=== PATIENT | female | born 1960 | race Caucasian/White ===

== ENCOUNTER 2019-04-30 09:07 | Inpatient (IN) ==
[2019-04-30] MEDS ORDERED: PROMETHAZINE HCL 12.5 MG in SODIUM CHLORIDE 0.9% 50 ML IV PRN (10:01)
[2019-04-30] MEDS ORDERED: LORazepam 1 MG/2 ML VIAL IV PRN (10:01)
[2019-04-30] MEDS ORDERED: ACETAMINOPHEN 325 MG TAB PO PRN (10:01)
[2019-04-30] MEDS ORDERED: ONDANSETRON INJ 2 MG/ML 2 ML VIAL IV PRN (10:01)
[2019-04-30] MEDS ORDERED: LORazepam 1 MG TAB PO PRN (10:01)
[2019-04-30 12:19] LABS: Basophils # (auto) 0.04 K/uL (0-0.2); Basophils % (auto) 0.5 %; Eosinophils # (auto) 0.16 K/uL (0-0.5); Eosinophils % (auto) 1.9 %; Hematocrit (blood only) 37.4 % (37-47); Hemoglobin 12.2 g/dL (12.0-16.0); Immature Granulocytes # (auto) 0.02 K/uL (0.00-0.02); Immature Granulocytes % (auto) 0.2 %; Lymphocytes # (auto) 2.48 K/uL (1.2-3.4); Mean Corpuscular Hgb Conc 32.6 g/dL (32-36); Mean Corpuscular Volume 80.3 fL (80-100); Mean Platelet Volume 9.2 fL (7.4-10.4); Monocytes # (auto) 0.77 K/uL (0.11-0.59); Neutrophils # (auto) 5.08 K/uL (1.4-6.5); Neutrophils % (auto) 59.4 %; Platelet Count 497 K/uL (130-400); RDW Coefficient of Variation 16.1 % (11.5-14.5); RDW Standard Deviation 47.3 fL (36.4-46.3); Red Blood Count 4.66 M/uL (4.2-5.4); White Blood Count 8.55 K/uL (4.8-10.8)
[2019-04-30] MEDS: OXYCODONE/ACETAMINOPHEN 5mg/325mg TAB PO PRN ×2 (12:54→19:03)
[2019-04-30 13:03] LABS: Creatinine Clr Calc Pharmacy 92.8 ml/min; Est GFR (African American) 85.7; Potassium 4.3 mmol/L (3.5-5.1)
[2019-04-30 13:04] LABS: Albumin Level 3.6 gm/dl (3.4-5.0); BUN Creatinine Ratio 17.5 (10-20); Bilirubin,Total 0.3 mg/dl (0.2-1); Calcium 9.1 mg/dl (8.5-10.1); Globulin 3.7 gm/dl (2.5-4.0); Total Protein 7.9 gm/dl (6.4-8.2)
--- NOTE | 2019-04-30 19:26 | Anesthesiology Consultation ---
Date of Service April 30, 2019 Assessment & Plan Chart Review Chart Review: Acceptable Risk for Surgery and Patient NOT seen in Pre Admission Testing Consults Requested none ASA ASA3 Proposed Anesthesia Anesthesia Type: General History Surgery Operation Date: 05/01/19 07:30 Proposed Procedures p Incision and Drainage Lumbar Spine - Jorge Luis Novoa DO Height/Weight Height: 5 ft 4 in Weight: 129.5 kg Allergies Allergy/AdvReac Type Severity Reaction Status Date / Time No Known Allergies Allergy Verified 04/23/19 17:32 Medications Home Medications Medication Instructions Recorded Confirmed Last Taken amlodipine 10 mg PO DAILY 03/23/19 04/30/19 04/29/19 14:00 aspirin [Aspir-81] 81 mg PO QAM 03/23/19 04/30/19 04/30/19 09:00 ferrous sulfate [iron] 325 mg PO Q2D 03/23/19 04/30/19 04/23/19 gabapentin 300 mg PO BID 03/23/19 04/30/19 04/30/19 09:00 gabapentin 600 mg PO HS 03/23/19 04/30/19 04/29/19 21:00 lisinopril 20 mg PO QAM 03/23/19 04/30/19 04/30/19 09:00 metformin 1,000 mg PO BID 03/23/19 04/30/19 04/30/19 09:00 pravastatin 40 mg PO HS 03/23/19 04/30/19 04/29/19 21:00 furosemide 40 mg PO DAILY PRN 03/30/19 04/30/19 04/23/19 potassium chloride 10 meq PO DAILY PRN 03/30/19 04/30/19 04/23/19 oxycodone 5 mg PO Q4H PRN #30 tab 04/07/19 04/30/19 04/23/19 tramadol 50 mg PO Q4H PRN #30 tab 04/07/19 04/30/19 04/23/19 lidocaine 1 patch TOP DAILY #15 ea 04/23/19 04/30/19 Unknown Active Medications Generic Name Dose Route Start Last Admin Trade Name Freq PRN Reason Stop Dose Admin Oxycodone/Acetaminophen 1 - 2 tab 04/30/19 10:01 04/30/19 19:03 Percocet 5mg/325mg PO 05/14/19 10:00 2 tab Q4H PRN Administration moderate to severe pain Past Medical History Medical History Back problem LE RADICULOPATHY/NEUROPATHY Diabetes NIDDM Hyperlipidemia Hypertension Iron deficiency Morbid obesity Exercise / Class Metabolic Activity III < 4 Walking/Shop/Light housework Past Family History Family History Father Family history of lung cancer Past Surgical History Surgical History History of back surgery CAGE History of colonoscopy History of hysterectomy History of lumbar fusion L5-S1 hardware removal/decompression, L3-L4 fusion, PLF L3-L5: 02/16/14: Grade 2 view, Stephenson#3, ETT 7.0 at [facility] History of total left knee replacement History of total right knee replacement Past Anesthesia History No Hx of Anesthesia Complications and No Family Hx of Anesthesia Complications History of PONV No Hx of PONV and No Hx of Motion Sickness Social History Smoking Status: Current every day smoker tobacco type: cigarettes Smoking cigarettes per day: 1 PPD X 45 YEARS Hx Alcohol Use: Yes alcohol intake frequency: holidays/special occasions only Hx Substance Use: No substance use type: does not use Physical Exam Vital Signs Last Vital Signs Temp 36.7 C 04/30/19 15:18 Pulse 77 04/30/19 15:18 Resp 19 04/30/19 15:18 BP 103/63 04/30/19 15:18 Pulse Ox 93 04/30/19 15:18 Testing Laboratory Results 04/30/19 12:09 04/30/19 12:09 04/30/19 17:26 POC Glucose 92 Electrocardiogram Date: 03/30/19 Findings: + NSR @ (73) Chest X-Ray Date: 04/29/19 Findings: + NAD and + cardiomegaly (borderline)
[2019-04-30] MEDS: CYCLOBENZAPRINE HCL 10 MG TAB PO PRN (20:28)
[2019-04-30] MEDS: DOCUSATE SODIUM 100 MG CAP PO SCH (20:29)
[2019-04-30] MEDS ORDERED: OXYCODONE HCL IR 5 MG TAB (IMMEDIATE RELEASE) PO PRN (22:45)
[2019-04-30] MEDS ORDERED: TRAMADOL HCL 50 MG TABLET PO PRN (22:45)
[2019-04-30] MEDS ORDERED: DEXTROSE 50% 50 ML SYRINGE IV PRN (23:15)
[2019-04-30] MEDS ORDERED: GLUCAGON FOR INJ 1 MG VIAL IM PRN (23:15)
[2019-04-30] MEDS ORDERED: CARBOHYDRATES FOR HYPOGLYCEMIA PO PRN (23:15)
[2019-04-30] MEDS ORDERED: GLUCOSE 10 TABS/TUBE PO PRN (23:15)
[2019-04-30] MEDS ORDERED: GLUCOSE 40% GEL 15 GM TUBE PO PRN (23:15)
[2019-04-30] MEDS: GABAPENTIN 600 MG TAB PO SCH (23:47)
[2019-04-30] MEDS: PRAVASTATIN SOD 40 MG TAB PO SCH (23:48)
--- NOTE | 2019-05-01 00:27 | Hospitalist Consultation ---
Date of Consultation May 01, 2019 Assessment & Plan (1) Pre-op evaluation: 59 y/o F Hx HTN, HLD, DMII, smoker, obese, lumbar surgery x 3. The pt underwent L2-L3 decompression and fusion and L3-L5 hardware removal on 04/01. She has recently experienced increasing pain in her lower back and was evaluated and sent for imaging in the out-patient setting. She was then contacted by her orthopedist to attend the hospital for an AM procedure owing to a fluid collection. She denies any LE numbness, acute weakness and denies any fevers. She does not know the specifics of her impending procedure. 1) The pt is pending a procedure AM which we do not have any specifics about. She recently tolerated lumbar surgery without issue so is not likely to need any additional pre-op workup. She is NPO and will be hydrated overnight. PRN analgesics provided. 2) DM II - sliding scale 3) HTN - cont Amlodipine, hold Lisinopril 4) HLD - cont Pravastatin Total time for this consult including review of labs, meds, imaging, records - discussion with pt and review of recent op report - 36 min Present on Admission?: Yes History of Present Illness Reason for Consultation: pre-op Requesting Physician: Sommer Attending Physician: Jorge Luis Novoa, DO History of Present Illness 59 y/o F Hx HTN, HLD, DMII, smoker, obese, lumbar surgery x 3. The pt underwent L2-L3 decompression and fusion and L3-L5 hardware removal on 04/01. She has recently experienced increasing pain in her lower back and was evaluated and sent for imaging in the out-patient setting. She was then contacted by her orthopedist to attend the hospital for an AM procedure owing to a fluid collection. She denies any LE numbness, acute weakness and denies any fevers. She does not now the specifics of her impending procedure. PMH: 1) HTN 2) HLD 3) DM II 4) Morbid obesity 5) Lumbar stenosis Surgical: 1) Lumbar surgery x 3 2) BL knee replacements Social: Smokes a pack of cigarettes daily. Does not drink alcohol. Family: Father owing to lung CA Mother following an ID Allergies Allergy/AdvReac Type Severity Reaction Status Date / Time No Known Allergies Allergy Verified 04/23/19 17:32 Home Medications Home Medications Medication Instructions Recorded Confirmed Type amlodipine 10 mg PO DAILY 03/23/19 04/30/19 History aspirin [Aspir-81] 81 mg PO QAM 03/23/19 04/30/19 History ferrous sulfate [iron] 325 mg PO Q2D 03/23/19 04/30/19 History gabapentin 300 mg PO BID 03/23/19 04/30/19 History gabapentin 600 mg PO HS 03/23/19 04/30/19 History lisinopril 20 mg PO QAM 03/23/19 04/30/19 History metformin 1,000 mg PO BID 03/23/19 04/30/19 History pravastatin 40 mg PO HS 03/23/19 04/30/19 History furosemide 40 mg PO DAILY PRN 03/30/19 04/30/19 History potassium chloride 10 meq PO DAILY PRN 03/30/19 04/30/19 History oxycodone 5 mg PO Q4H PRN #30 tab 04/07/19 04/30/19 Rx tramadol 50 mg PO Q4H PRN #30 tab 04/07/19 04/30/19 Rx lidocaine 1 patch TOP DAILY #15 ea 04/23/19 04/30/19 Rx Patient History Medical History Back problem LE RADICULOPATHY/NEUROPATHY Diabetes NIDDM Hyperlipidemia Hypertension Iron deficiency Morbid obesity Surgical History History of back surgery CAGE History of colonoscopy History of hysterectomy History of lumbar fusion L5-S1 hardware removal/decompression, L3-L4 fusion, PLF L3-L5: 02/16/14: Grade 2 view, Stephenson#3, ETT 7.0 at [facility] History of total left knee replacement History of total right knee replacement Family History Father Family history of lung cancer Social History Preferred Language: Sami Communication Ability: Effective Beliefs That Will Affect Care: None marital status: Current Living Situation: Spouse Other Information That Helps Us Care for You: No Feels Safe at Home: Yes Safety Concerns: Feels Safe At This Time Smoking Status: Current every day smoker Tobacco Type: cigarettes Cigarettes Per Day: 1 PPD X 45 YEARS Hx Alcohol Use: Yes Hx Substance Use: No Review of Systems Review of Systems: Gen: Denies fevers, night sweats, rigors, fatigue, malaise, weight loss/gain ENT: Denies congestion, throat pain, hearing loss Eyes: Denies acute visual changes CV: Denies CP, palpitations Pulmonary: Denies SOB, cough, wheezing GI: Denies N/V, diarrhea, constipation Neuro: Denies acute or unilateral weakness, acute gait impairment, headache or acute visual changes Musculoskeletal: Lower back pain as described Endocrine: Denies polydipsia, polyuria Skin: Denies acute rashe or ulcers Physical Exam Physical Exam: General: AAO x 3, no distress ENT: No erythema or exudates, no thrush Eyes: MECHE, EOMI Head and neck: Normocephalic, atraumatic, No JVD, neck is supple. Chest/heart: Nontender, S1,2, RRR, no murmurs, no gallops Lungs: CTAB, no wheezing or crackles Abdomen: Nontender, nondistended, BS+ Neuro: AAO x 3, speech is clear, no unilateral weakness or loss of sensation, coordination intact Skin: There is no cellulitis Extremities: No clubbing, cyanosis, edema Results & Data Vital Signs (Past 12 Hours) Vital Signs Temp Pulse Resp BP BP Pulse Ox 04/30/19 23:16 97.5 F L 71 16 122/67 94 04/30/19 15:18 98.1 F 77 19 103/63 93 PG Care Time/CCT Total # of Minutes Spent Total Time Spent with Patient: Total time spent is greater than 50% in coordination of care (as documented) at patient's floor/unit and/or counseling patient:
[2019-05-01] MEDS: INSULIN ASPART 100 UNITS/ML 3 ML PEN SC SCH ×4 (00:31→22:31)
[2019-05-01] MEDS: LACTATED RINGER'S 1,000 ML IV SCH ×2 (00:42→13:33)
[2019-05-01] MEDS: OXYCODONE/ACETAMINOPHEN 5mg/325mg TAB PO PRN (08:20)
[2019-05-01] MEDS: AMLODIPINE BESYLATE 5 MG TAB PO SCH (08:22)
[2019-05-01] MEDS: DOCUSATE SODIUM 100 MG CAP PO SCH ×2 (08:23→21:43)
[2019-05-01] MEDS: GABAPENTIN 300 MG CAP PO SCH ×3 (09:48→21:47)
--- NOTE | 2019-05-01 09:58 | Hospitalist Progress Note ---
Date of Service May 01, 2019 Assessment & Plan (1) Pre-op evaluation: 59 y/o F Hx HTN, HLD, DMII, smoker, obese, lumbar surgery x 3. The pt underwent L2-L3 decompression and fusion and L3-L5 hardware removal on 04/01. She has recently experienced increasing pain in her lower back and was evaluated and sent for imaging in the out-patient setting. She was then contacted by her orthopedist to attend the hospital for an AM procedure owing to a fluid collection. She denies any LE numbness, acute weakness and denies any fevers. She does not know the specifics of her impending procedure. 1) The pt is pending a procedure AM which we do not have any specifics about. She recently tolerated lumbar surgery without issue so is not likely to need any additional pre-op workup. She is NPO and will be hydrated overnight. PRN analgesics provided. 2) DM II - sliding scale 3) HTN - cont Amlodipine, hold Lisinopril 4) HLD - cont Pravastatin Total time for this consult including review of labs, meds, imaging, records - discussion with pt and review of recent op report - 36 min Subjective pt seen and examined at the bedside. No acute event over night. Review of Systems Review of Systems: Gen: Denies fevers, night sweats, rigors, fatigue, malaise, weight loss/gain ENT: Denies congestion, throat pain, hearing loss Eyes: Denies acute visual changes CV: Denies CP, palpitations Pulmonary: Denies SOB, cough, wheezing GI: Denies N/V, diarrhea, constipation Neuro: Denies acute or unilateral weakness, acute gait impairment, headache or acute visual changes Musculoskeletal: Lower back pain as described Endocrine: Denies polydipsia, polyuria Skin: Denies acute rashe or ulcers Physical Exam Constitutional: WD/WN, vitals as above well developed and well nourished Eyes: PERRL, conjunctivae normal, anicteric sclerae ENMT: external ear and nose normal, oropharynx normal Neck: trachea midline, no thyromegaly Respiratory: normal respiratory effort, lungs clear to auscultation Cardiovascular: RRR, no murmur, no edema Chest (Breasts): normal inspection/palpation of breasts Gastrointestinal (Abdomen): normal bowel sounds, soft, nontender, no hepatosplenomegaly Musculoskeletal: no cyanosis or clubbing, extremities motor strength 5/5 Skin: no rashes, warm and dry Neurologic: patellar DTR's 2+ bilat, sensation intact Psychiatric: A+Ox3, euthymic affect Genitourinary: no vaginal lesions, no adnexal mass Lymphatic: no cervical or axillary lymphadenopathy Results & Data Vital Signs (Past 12 Hours) Vital Signs Temp Pulse Resp BP Pulse Ox 05/01/19 07:43 36.5 C 72 18 116/78 98 04/30/19 23:16 36.4 C L 71 16 122/67 94 PG Care Time/CCT Total # of Minutes Spent Total Time Spent with Patient: Total time spent is greater than 50% in coordination of care (as documented) at patient's floor/unit and/or counseling patient:
--- NOTE | 2019-05-01 15:14 | History & Physical Bridge Note ---
Date of Service May 01, 2019 History & Physical Bridge Note I have examined the patient, reviewed the History & Physical and in the interval since the performance of the History & Physical I have noted the following changes of clinical significance: no changes noted
--- NOTE | 2019-05-01 15:19 | History & Physical Report ---
Date of Service May 01, 2019 Assessment & Plan (1) Lumbar epidural mass: I&D lumbar spine Present on Admission?: Yes History of Present Illness Chief Complaint: Back pain and leg pain Primary Care Provider: Antwan Shaquille This is a 59-year-old female well-known to me that status post lumbar decompre ssion and fusion. She done beautifully postoperatively but over the past week and a half is had a marked decline in status. An MRI was performed demonstrating significant seroma at the operative site. Subsequently elected to go I&D. Allergies Allergy/AdvReac Type Severity Reaction Status Date / Time No Known Allergies Allergy Verified 04/23/19 17:32 Home Medications Home Medications Medication Instructions Recorded Confirmed Type amlodipine 10 mg PO DAILY 03/23/19 04/30/19 History aspirin [Aspir-81] 81 mg PO QAM 03/23/19 04/30/19 History ferrous sulfate [iron] 325 mg PO Q2D 03/23/19 04/30/19 History gabapentin 300 mg PO BID 03/23/19 04/30/19 History gabapentin 600 mg PO HS 03/23/19 04/30/19 History lisinopril 20 mg PO QAM 03/23/19 04/30/19 History metformin 1,000 mg PO BID 03/23/19 04/30/19 History pravastatin 40 mg PO HS 03/23/19 04/30/19 History furosemide 40 mg PO DAILY PRN 03/30/19 04/30/19 History potassium chloride 10 meq PO DAILY PRN 03/30/19 04/30/19 History oxycodone 5 mg PO Q4H PRN #30 tab 04/07/19 04/30/19 Rx tramadol 50 mg PO Q4H PRN #30 tab 04/07/19 04/30/19 Rx lidocaine 1 patch TOP DAILY #15 ea 04/23/19 04/30/19 Rx Past Med/Surg History Medical History Back problem LE RADICULOPATHY/NEUROPATHY Diabetes NIDDM Hyperlipidemia Hypertension Iron deficiency Morbid obesity Surgical History History of back surgery CAGE History of colonoscopy History of hysterectomy History of lumbar fusion L5-S1 hardware removal/decompression, L3-L4 fusion, PLF L3-L5: 02/16/14: Grade 2 view, Stephenson#3, ETT 7.0 at [facility] History of total left knee replacement History of total right knee replacement Family History Father Family history of lung cancer Social History Preferred Language: Algerian Communication Ability: Effective Beliefs That Will Affect Care: None marital status: Current Living Situation: Spouse Other Information That Helps Us Care for You: No Feels Safe at Home: Yes Safety Concerns: Feels Safe At This Time Smoking Status: Current every day smoker Tobacco Type: cigarettes Cigarettes Per Day: 1 PPD X 45 YEARS Hx Alcohol Use: Yes Hx Substance Use: No Physical Exam Physical Exam: Patient is alert and oriented in obvious distress. She is neurologically intact. Results & Data Vital Signs (Past 12 Hours) Vital Signs Temp Pulse Pulse Resp BP Pulse Ox 05/01/19 15:04 36.7 C 75 75 20 90/72 L 93 05/01/19 07:43 36.5 C 72 18 116/78 98
[2019-05-01] MEDS ORDERED: ATROPINE SULFATE 0.1 MG/ML 10ML SYR IV PRN (15:30)
[2019-05-01] MEDS ORDERED: ONDANSETRON INJ 2 MG/ML 2 ML VIAL IV PRN (15:30)
[2019-05-01] MEDS ORDERED: HYDROmorphone INJ 2 MG/ML SYR/VIAL IV PRN (15:30)
[2019-05-01] MEDS ORDERED: PROMETHAZINE HCL 12.5 MG in SODIUM CHLORIDE 0.9% 50 ML IV PRN (15:30)
[2019-05-01] MEDS ORDERED: METOCLOPRAMIDE HCL INJ 5 MG/ML 2 ML VIAL IV PRN (15:30)
[2019-05-01] MEDS ORDERED: DEXAMETHASONE SOD INJ 4 MG/ML VIAL IV PRN (15:30)
[2019-05-01] MEDS ORDERED: fentaNYL citrate 100 MCG/2 ML VIAL IV PRN (15:30)
[2019-05-01] MEDS ORDERED: ePHEDrine sulfate 50 MG/ML AMP IV PRN (15:30)
[2019-05-01] MEDS ORDERED: GENTAMICIN SULFATE 40 MG/ML 2 ML VIAL ONE (15:47)
[2019-05-01] MEDS ORDERED: VANCOMYCIN HCL 1000MG/20ML VIAL ONE (15:47)
[2019-05-01] MEDS ORDERED: BUPIVACAINE/EPINEPHRINE 0.5% MPF 1:200,000 30 ML VIAL ONE (15:48)
[2019-05-01] MEDS ORDERED: BACITRACIN INJ 50,000 UNIT VIAL ONE (15:48)
[2019-05-01] MEDS ORDERED: MIDAZOLAM HCL 1 MG/ML 2ML VIAL ONE (15:57)
[2019-05-01] MEDS ORDERED: fentaNYL citrate 100 MCG/2 ML VIAL ONE ×2 (15:57→16:32)
[2019-05-01] MEDS ORDERED: ROCURONIUM BROMIDE 10 MG/ML 5 ML VIAL ONE (16:36)
[2019-05-01] MEDS ORDERED: DEXAMETHASONE SOD INJ 4 MG/ML VIAL ONE (16:36)
[2019-05-01] MEDS ORDERED: ONDANSETRON INJ 2 MG/ML 2 ML VIAL ONE (16:36)
[2019-05-01] MEDS ORDERED: GLYCOPYRROLATE 0.2 MG/ML VIAL ONE (16:36)
[2019-05-01] MEDS ORDERED: PROPOFOL IV EMULSION 10 MG/ML 20 ML VIAL IV ONE ×2 (16:36→17:31)
[2019-05-01] MEDS ORDERED: NEOSTIGMINE METHYLSULFATE 1 MG/ML 10ML VIAL ONE (16:37)
--- NOTE | 2019-05-01 16:48 | Operative Report ---
Post Operative Report Pre & Post Diagnosis Operation Date: 05/01/19 07:30 Pre-Op Diagnosis: LUMBAR SEROMA Post-Op Diagnosis: LUMBAR SEROMA Procedure Operation Date: 05/01/19 07:30 Actual Procedures #1 irrigation debridement of the lumbar spine. #2 placement of 10 cc of stimulant beads impregnated with vancomycin and tobramycin Surgeon Jorge Luis Novoa DO Remotely Operated Vehicle Carlton Honeycutt Estimated Blood Loss 25 Findings See Below Patient is 5 foot 4 inches tall weighing 129.5 kg with a BMI of 49. The patient's body habitus did increase surgical time and difficulty adding at least 50 % increase in operative time. Specimens Epidural space cultures Indications This is a 59-year-old female that presents postoperatively with increasing back pain. MRI demonstrates seroma at the operative site. Subsequently we elected to undergo I&D evacuation of seroma and cultures. Description of Procedure Patient was met with identified and informed consent obtained. Patient was then taken to the operative suite underwent intubation placed in prone position Chandu table on top of the Prince frame. All bony prominences well-padded eyes inspected to ensure no external pressure placed upon the peer at this point the lumbar spine was prepped and draped in the normal sterile fashion. Sharp dissection with the assistance of Bovie cautery was then performed down to and exposing the lumbar spine at the L2-3 level. After the fascial layer was released large amount of fluid serosanguineous in nature was expressed. Cultures were obtained. Did not appear to be infected. The tissues appeared quite healthy healthy. All remaining hematoma was evacuated. The incision was copiously irrigated. Approximately 10 cc of stimulant beads impregnated with vancomycin and tobramycin were then placed throughout the wound. 15 round JOSE GUADALUPE drain was inserted. Incision was then closed with 1 Vicryl in the fascia 2-0 Vicryl substantially and 4 Monocryl for final skin closure. Steri-Strip sterile dressing placed. Patient will continue to PACU stable condition. Please note Carlton Honeycutt present throughout the entire procedure involved in patient positioning complex portions of the surgery and final skin closure. I attest to the content of the Intraoperative Record and any orders documented therein. Any exceptions are noted below.
--- NOTE | 2019-05-01 17:46 | Hospitalist Progress Note ---
Date of Service May 01, 2019 Assessment & Plan (1) Pre-op evaluation: 59 y/o F Hx HTN, HLD, DMII, smoker, obese, lumbar surgery x 3. The pt underwent L2-L3 decompression and fusion and L3-L5 hardware removal on 04/01. She has recently experienced increasing pain in her lower back and was evaluated and sent for imaging in the out-patient setting. She was then contacted by her orthopedist to attend the hospital for an AM procedure owing to a fluid collection. She denies any LE numbness, acute weakness and denies any fevers. She does not know the specifics of her impending procedure. 1) The pt is NPO for the procedure of draining seroma by Dr. Williamson -ortho. She recently tolerated lumbar surgery without issue so is not likely to need any additional pre-op workup. PRN analgesics provided. 2) DM II - sliding scale 3) HTN - cont Amlodipine, hold Lisinopril 4) HLD - cont Pravastatin Total time for this consult including review of labs, meds, imaging, records - discussion with pt and review of recent op report - 36 min Subjective Pt seen and examined at the bedside. She c/o complain of lower back pain and numbness in her hips. Discussed with Dr. Williamson and he said he will take pt to the OR to drain seroma that was seen on her Xrays. Pt denies fever, chills, chest pain, SOB, abdominal pain , frequency and urgency. Review of Systems Review of Systems: All systems reviewed & are unremarkable except as noted in HPI & below Physical Exam Constitutional: WD/WN, vitals as above well developed and well nourished Eyes: PERRL, conjunctivae normal, anicteric sclerae ENMT: external ear and nose normal, oropharynx normal Neck: trachea midline, no thyromegaly Respiratory: normal respiratory effort, lungs clear to auscultation Cardiovascular: RRR, no murmur, no edema Chest (Breasts): normal inspection/palpation of breasts Gastrointestinal (Abdomen): normal bowel sounds, soft, nontender, no hepatosplenomegaly Musculoskeletal: Spine: + limited thoraco-lumbar ROM, + lumbar spinal tenderness, + straight leg raise positive and + bend over test abnormal Skin: no rashes, warm and dry Neurologic: patellar DTR's 2+ bilat, sensation intact Psychiatric: A+Ox3, euthymic affect Genitourinary: no vaginal lesions, no adnexal mass Lymphatic: no cervical or axillary lymphadenopathy Results & Data Vital Signs (Past 12 Hours) Vital Signs Temp Pulse Pulse Pulse Resp BP Pulse Ox 05/01/19 17:40 36.9 C 83 19 161/88 H 95 05/01/19 17:30 36.9 C 85 18 173/88 H 99 05/01/19 17:22 36.9 C 96 H 20 117/98 97 05/01/19 15:04 36.7 C 75 75 20 90/72 L 93 05/01/19 07:43 36.5 C 72 18 116/78 98 PG Care Time/CCT Total # of Minutes Spent Total Time Spent with Patient: Total time spent is greater than 50% in coordination of care (as documented) at patient's floor/unit and/or counseling patient:
--- NOTE | 2019-05-01 18:03 | Anesthesiology Progress Note ---
Date of Service May 01, 2019 Anesthesia Post Procedure Vital Signs Vital Signs: Temp Pulse Pulse Pulse Resp BP Pulse Ox 05/01/19 17:50 36.7 C 79 21 121/55 L 95 05/01/19 17:40 36.9 C 83 19 161/88 H 95 05/01/19 17:30 36.9 C 85 18 173/88 H 99 05/01/19 17:22 36.9 C 96 H 20 117/98 97 05/01/19 15:04 36.7 C 75 75 20 90/72 L 93 05/01/19 07:43 36.5 C 72 18 116/78 98 04/30/19 23:16 36.4 C L 71 16 122/67 94 Pain Intensity Lower Back: Pain Intensity: 0 Transfer of Care Handoff Completed per policy Notes Mental Status: alert / awake / arousable Patient Amnestic to Procedure: Yes Nausea / Vomiting: adequately controlled Pain: adequately controlled Airway Patency, RR, SpO2: stable & adequate BP & HR: stable & adequate Hydration State: stable & adequate Anesthetic Complications: no major complications apparent
[2019-05-01] MEDS ORDERED: Nursing to Pharmacy Communication ONE (18:30)
[2019-05-01] MEDS: GABAPENTIN 600 MG TAB PO SCH (21:43)
[2019-05-01] MEDS: PRAVASTATIN SOD 40 MG TAB PO SCH (21:43)
[2019-05-02] MEDS: OXYCODONE/ACETAMINOPHEN 5mg/325mg TAB PO PRN ×4 (00:15→18:49)
[2019-05-02] MEDS: INSULIN ASPART 100 UNITS/ML 3 ML PEN SC SCH ×5 (07:13→21:30)
[2019-05-02] MEDS: AMLODIPINE BESYLATE 5 MG TAB PO SCH (08:01)
[2019-05-02] MEDS: GABAPENTIN 300 MG CAP PO SCH ×2 (08:01→20:49)
[2019-05-02] MEDS: DOCUSATE SODIUM 100 MG CAP PO SCH ×2 (08:01→20:49)
--- NOTE | 2019-05-02 08:40 | Hospitalist Progress Note ---
Date of Service May 02, 2019 Assessment & Plan (1) Pre-op evaluation: 59 y/o F Hx HTN, HLD, DMII, smoker, obese, lumbar surgery x 3. The pt underwent L2-L3 decompression and fusion and L3-L5 hardware removal on 04/06. Yesterday pt underwent drainage of lumbar seroma by Dr. millard, and tolerated procedure well. Ortho also placed 10 cc of stimulant beads impregnated with vancomycin and tobramycin for lumbar seroma.Continue pain management. (2) Hypertension: cont Amlodipine, hold Lisinopril (3) Hyperlipemia: cont Pravastatin Present on Admission?: Yes (4) Diabetes mellitus type II, controlled: Cont accuchecks AC&HS and SSI (5) DVT prophylaxis: Continue Lovenox 40 mg sc QAM Subjective Pt seen and examined at the bedside. No acute event over night. S/p 1 irrigation debridement of the lumbar spine. Ortho also placed 10 cc of stimulant beads impregnated with vancomycin and tobramycin for lumbar seroma.Afebrile, improving PO intake.Pt is ambulating TID. Pt denies fever chills, chest pain, abdominal pain, frequency and urgency. She reports her back is still sore. Review of Systems Review of Systems: All systems reviewed & are unremarkable except as noted in HPI & below Physical Exam Constitutional: WD/WN, vitals as above well developed and + obese Eyes: PERRL, conjunctivae normal, anicteric sclerae ENMT: external ear and nose normal, oropharynx normal Neck: trachea midline, no thyromegaly Respiratory: normal respiratory effort, lungs clear to auscultation Cardiovascular: RRR, no murmur, no edema Chest (Breasts): normal inspection/palpation of breasts Gastrointestinal (Abdomen): normal bowel sounds, soft, nontender, no hepatosplenomegaly Musculoskeletal: Spine: + limited thoraco-lumbar ROM, + lumbar spinal tenderness, + straight leg raise positive and + bend over test abnormal wound at the back -clean dry and intact. Skin: no rashes, warm and dry Neurologic: patellar DTR's 2+ bilat, sensation intact Psychiatric: A+Ox3, euthymic affect Genitourinary: no vaginal lesions, no adnexal mass Lymphatic: no cervical or axillary lymphadenopathy Results & Data Vital Signs (Past 12 Hours) Vital Signs Temp Pulse Pulse Resp BP BP Pulse Ox 05/02/19 07:00 36.5 C 70 19 111/66 91 05/02/19 03:16 36.4 C L 87 16 91/57 L 93 05/01/19 23:10 36.8 C 83 16 134/77 91 05/01/19 21:47 36.7 C 84 19 120/69 90 PG Care Time/CCT Total # of Minutes Spent Total Time Spent with Patient: Total time spent is greater than 50% in co ordination of care (as documented) at patient's floor/unit and/or counseling patient:
--- NOTE | 2019-05-02 09:06 | Orthopedic Progress Note ---
Date of Service May 02, 2019 Assessment & Plan (1) Lumbar stenosis with neurogenic claudication: Patient is doing well postop day 1. We will continue with GI DVT prophylaxis. We will have her seen by physical therapy for ambulation gait training. We will continue to wait for culture results. She will likely be with us for the next 2 to 3 days until results come in. She may continue with activities as tolerated. Subjective Patient is postop day 1 status post irrigation debridement of the lumbar seroma. She is doing well at this point. Her leg pain is decreased. She has continued lower back pain. Her pain is well controlled with medication. She denies any other numbness, tingling, or paresthesias. Physical Exam Physical Exam: On exam she is alert and oriented. Her dressing is clean dry intact drain is in place and is holding suction. Her abdomen soft nontender calves are supple nontender. Results & Data Vital Signs (Past 12 Hours) Vital Signs Temp Pulse Pulse Resp BP BP Pulse Ox 05/02/19 07:00 36.5 C 70 19 111/66 91 05/02/19 03:16 36.4 C L 87 16 91/57 L 93 05/01/19 23:10 36.8 C 83 16 134/77 91 05/01/19 21:47 36.7 C 84 19 120/69 90
--- NOTE | 2019-05-02 11:10 | Anesthesiology Progress Note ---
Date of Service May 02, 2019 Anesthesia Post Procedure Vital Signs Vital Signs: Temp Pulse Pulse Pulse Resp BP BP 05/02/19 07:00 36.5 C 70 19 111/66 05/02/19 03:16 36.4 C L 87 16 91/57 L 05/01/19 23:10 36.8 C 83 16 134/77 05/01/19 21:47 36.7 C 84 19 120/69 05/01/19 20:19 36.8 C 79 18 149/83 H 05/01/19 19:41 36.5 C 81 18 136/71 05/01/19 18:52 36.3 C L 76 18 123/68 05/01/19 18:00 36.7 C 79 22 133/68 05/01/19 17:50 36.7 C 79 21 121/55 L 05/01/19 17:40 36.9 C 83 19 161/88 H 05/01/19 17:30 36.9 C 85 18 173/88 H 05/01/19 17:22 36.9 C 96 H 20 117/98 05/01/19 15:04 36.7 C 75 75 20 90/72 L Pulse Ox 05/02/19 07:00 91 05/02/19 03:16 93 05/01/19 23:10 91 05/01/19 21:47 90 05/01/19 20:19 95 05/01/19 19:41 96 05/01/19 18:52 92 05/01/19 18:00 98 05/01/19 17:50 95 05/01/19 17:40 95 05/01/19 17:30 99 05/01/19 17:22 97 05/01/19 15:04 93 Pain Intensity Lower Back: Pain Intensity: 5 Transfer of Care Handoff Completed per policy Notes Mental Status: alert / awake / arousable and participated in evaluation Patient Amnestic to Procedure: Yes Nausea / Vomiting: adequately controlled Pain: adequately controlled Airway Patency, RR, SpO2: stable & adequate BP & HR: stable & adequate Hydration State: stable & adequate Anesthetic Complications: no major complications apparent
[2019-05-02 12:12] LABS: INR 1.1 (0.9-1.1); Prothrombin Time 10.8 Seconds (9.0-12.0)
[2019-05-02] MEDS: ENOXAPARIN INJ 40 MG/0.4 ML SYR SQ SCH (13:44)
[2019-05-02] MEDS: POLYETHYLENE (MIRALAX) 17 GM PACK PO PRN (16:46)
[2019-05-02] MEDS: CYCLOBENZAPRINE HCL 10 MG TAB PO PRN (16:46)
[2019-05-02] MEDS: GABAPENTIN 600 MG TAB PO SCH (20:49)
[2019-05-02] MEDS: PRAVASTATIN SOD 40 MG TAB PO SCH (20:49)
--- NOTE | 2019-05-03 07:42 | Orthopedic Progress Note ---
Date of Service May 03, 2019 Assessment & Plan (1) Lumbar stenosis with neurogenic claudication: Patient is doing well postoperative day #2. Her culture results so far are negative for infection. We will continue to monitor her JOSE GUADALUPE drain. We will continue with GI DVT prophylaxis. Once we get final culture results will be will discharge her to home. Subjective Patient is seen bedside in room 383. She states that she is doing well today. Her pain is better controlled. She has not yet had a bowel movement. She is tolerating oral intake without difficulties. She is walking without the use of a walker. She denies any other numbness, tingling, or paresthesias. Physical Exam Physical Exam: On exam the patient is alert and oriented. Her dressing is clean dry and intact. Her JOSE GUADALUPE drains in place and holding suction she had 35 cc of output the last shift. Her abdomen soft nontender calves are supple nontender strength and sensation both intact. Results & Data Vital Signs (Past 12 Hours) Vital Signs Temp Pulse Resp BP 05/02/19 23:05 36.6 C 64 16 134/79
[2019-05-03] MEDS: DOCUSATE SODIUM 100 MG CAP PO SCH ×2 (07:50→21:00)
[2019-05-03] MEDS: OXYCODONE/ACETAMINOPHEN 5mg/325mg TAB PO PRN ×3 (07:50→23:24)
[2019-05-03] MEDS: ENOXAPARIN INJ 40 MG/0.4 ML SYR SQ SCH (07:50)
[2019-05-03] MEDS: GABAPENTIN 300 MG CAP PO SCH ×2 (07:51→21:00)
[2019-05-03] MEDS: AMLODIPINE BESYLATE 5 MG TAB PO SCH (07:51)
[2019-05-03] MEDS: INSULIN ASPART 100 UNITS/ML 3 ML PEN SC SCH ×4 (08:40→21:11)
--- NOTE | 2019-05-03 11:18 | Hospitalist Progress Note ---
Date of Service May 03, 2019 Assessment & Plan (1) Pre-op evaluation: 59 y/o F Hx HTN, HLD, DMII, smoker, obese, lumbar surgery x 3. The pt underwent L2-L3 decompression and fusion and L3-L5 hardware removal on 04/06. Yesterday pt underwent drainage of lumbar seroma by Dr. millard, and tolerated procedure well. Ortho also placed 10 cc of stimulant beads impregnated with vancomycin and tobramycin for lumbar seroma.Continue pain management.Pt culture results so far are negative for infection. We will continue to monitor her JOSE GUADALUPE drain. We will continue with GI/DVT prophylaxis. Once we get final culture results will be will discharge her to home per orthopedic recommendations. (2) Hypertension: cont Amlodipine, hold Lisinopril (3) Hyperlipemia: cont Pravastatin (4) Diabetes mellitus type II, controlled: Cont accu-checks AC&HS and SSI (5) DVT prophylaxis: Continue Lovenox 40 mg sc QAM (6) Constipation, acute: Induced with opioids that pt takes form pain relief related to her recent surgery. Pt has stool softeners and started on Miralax yesterday. encouraged to ambulate and consumes high fiber food, prune juice etc. Present on Admission?: No Subjective Pt seen and examined at the bedside. Lumbar stenosis with neurogenic claudication.POD#2 s/p drainage of the lumbar seroma.No acute event over night.Afebrile. She reports her back pain is improving and she denies any numbness , paresthesia or tingling in the back, lower spine or legs as she was complaining before. She said she is doing well. PO intake is good. She has issues with constipation for 2-3 days and she was stared on Miralax yesterday . No BM yet.Pt is passing gas and he abdomen is soft. Her culture results so far are negative for infection. We will continue to monitor her JOSE GUADALUPE drain. We will continue with GI/DVT prophylaxis. Once we get final culture results will be will discharge her to home per orthopedic recommendations.. Review of Systems Review of Systems: All systems reviewed & are unremarkable except as noted in HPI & below Physical Exam Constitutional: WD/WN, vitals as above well developed and + obese Eyes: PERRL, conjunctivae normal, anicteric sclerae ENMT: external ear and nose normal, oropharynx normal Neck: trachea midline, no thyromegaly Respiratory: normal respiratory effort, lungs clear to auscultation Cardiovascular: RRR, no murmur, no edema Chest (Breasts): normal inspection/palpation of breasts Gastrointestinal (Abdomen): normal bowel sounds, soft, nontender, no hepatosplenomegaly Musculoskeletal: Spine: + limited thoraco-lumbar ROM, + lumbar spinal tenderness, + straight leg raise positive and + bend over test abnormal Skin: no rashes, warm and dry Neurologic: patellar DTR's 2+ bilat, sensation intact Psychiatric: A+Ox3, euthymic affect Genitourinary: no vaginal lesions, no adnexal mass Lymphatic: no cervical or axillary lymphadenopathy Results & Data Vital Signs (Past 12 Hours) Vital Signs Temp Pulse Resp BP Pulse Ox 05/03/19 07:40 36.5 C 72 19 167/70 H 95 PG Care Time/CCT Total # of Minutes Spent Total Time Spent with Patient: Total time spent is greater than 50% in coordination of care (as documented) at patient's floor/unit and/or counseling patient:
[2019-05-03 11:21] LABS: Basophils # (auto) 0.04 K/uL (0-0.2); Basophils % (auto) 0.4 %; Eosinophils # (auto) 0.43 K/uL (0-0.5); Hematocrit (blood only) 37.7 % (37-47); Hemoglobin 11.9 g/dL (12.0-16.0); Immature Granulocytes # (auto) 0.02 K/uL (0.00-0.02); Immature Granulocytes % (auto) 0.2 %; Lymphocytes % (auto) 31.7 %; Mean Corpuscular Volume 82.3 fL (80-100); Mean Platelet Volume 9.2 fL (7.4-10.4); Monocytes # (auto) 1.05 K/uL (0.11-0.59); Monocytes % (auto) 9.8 %; Neutrophils # (auto) 5.77 K/uL (1.4-6.5); Neutrophils % (auto) 53.9 %; Platelet Count 407 K/uL (130-400); RDW Coefficient of Variation 16.1 % (11.5-14.5); RDW Standard Deviation 48.6 fL (36.4-46.3); Red Blood Count 4.58 M/uL (4.2-5.4); White Blood Count 10.71 K/uL (4.8-10.8)
[2019-05-03 11:35] LABS: Mean Corpuscular Hgb Conc 31.6 g/dL (32-36)
[2019-05-03 11:41] LABS: Albumin Level 3.5 gm/dl (3.4-5.0); BUN Creatinine Ratio 22.9 (10-20); Calcium 9.5 mg/dl (8.5-10.1); Creatinine Clr Calc Pharmacy 95.1 ml/min; Est GFR (African American) 88.2; Est GFR (Non-African American) 76.1; Potassium 3.7 mmol/L (3.5-5.1)
[2019-05-03 11:44] LABS: Albumin Globulin Ratio 0.9 (0.9-2); Bilirubin,Total 0.4 mg/dl (0.2-1); Globulin 4.1 gm/dl (2.5-4.0); Total Protein 7.6 gm/dl (6.4-8.2)
[2019-05-03] MEDS: POLYETHYLENE (MIRALAX) 17 GM PACK PO PRN (15:44)
[2019-05-03] MEDS: GABAPENTIN 600 MG TAB PO SCH (21:00)
[2019-05-03] MEDS: PRAVASTATIN SOD 40 MG TAB PO SCH (21:00)
[2019-05-04 06:57] LABS: Basophils # (auto) 0.04 K/uL (0-0.2); Basophils % (auto) 0.5 %; Eosinophils # (auto) 0.43 K/uL (0-0.5); Eosinophils % (auto) 5.4 %; Hematocrit (blood only) 37.4 % (37-47); Hemoglobin 12.3 g/dL (12.0-16.0); Immature Granulocytes # (auto) 0.01 K/uL (0.00-0.02); Immature Granulocytes % (auto) 0.1 %; Lymphocytes # (auto) 2.51 K/uL (1.2-3.4); Lymphocytes % (auto) 31.5 %; Mean Corpuscular Hgb Conc 32.9 g/dL (32-36); Mean Corpuscular Volume 80.8 fL (80-100); Mean Platelet Volume 9.5 fL (7.4-10.4); Monocytes # (auto) 0.79 K/uL (0.11-0.59); Monocytes % (auto) 9.9 %; Neutrophils % (auto) 52.6 %; Platelet Count 361 K/uL (130-400); RDW Coefficient of Variation 15.7 % (11.5-14.5); RDW Standard Deviation 45.9 fL (36.4-46.3); Red Blood Count 4.63 M/uL (4.2-5.4); White Blood Count 7.98 K/uL (4.8-10.8)
[2019-05-04 07:38] LABS: Albumin Level 3.2 gm/dl (3.4-5.0); BUN Creatinine Ratio 20.7 (10-20); Bilirubin,Total 0.4 mg/dl (0.2-1); Creatinine Clr Calc Pharmacy 99.9 ml/min; Est GFR (African American) 93.6; Est GFR (Non-African American) 80.8; Potassium 4.2 mmol/L (3.5-5.1)
[2019-05-04 07:39] LABS: Albumin Globulin Ratio 0.8 (0.9-2); Globulin 3.9 gm/dl (2.5-4.0); Total Protein 7.1 gm/dl (6.4-8.2)
[2019-05-04] MEDS: OXYCODONE/ACETAMINOPHEN 5mg/325mg TAB PO PRN ×2 (07:50→11:53)
[2019-05-04] MEDS: GABAPENTIN 300 MG CAP PO SCH (08:28)
[2019-05-04] MEDS: DOCUSATE SODIUM 100 MG CAP PO SCH (08:28)
[2019-05-04] MEDS: AMLODIPINE BESYLATE 5 MG TAB PO SCH (08:31)
[2019-05-04] MEDS: INSULIN ASPART 100 UNITS/ML 3 ML PEN SC SCH ×2 (08:39→12:39)
[2019-05-04] MEDS: ENOXAPARIN INJ 40 MG/0.4 ML SYR SQ SCH (08:41)
--- NOTE | 2019-05-04 08:56 | Hospitalist Progress Note ---
Date of Service May 04, 2019 Assessment & Plan (1) Postoperative seroma: 59 y/o F Hx HTN, HLD, DMII, smoker, obese, lumbar surgery x 3. The pt underwent L2-L3 decompression and fusion and L3-L5 hardware removal on 04/06. Pt underwent drainage of lumbar seroma by Dr. millard 05/01/19, and tolerated procedure well. Ortho also placed 10 cc of stimulant beads impregnated with vancomycin and tobramycin for lumbar seroma. (2) Hypertension: cont Amlodipine, resume lisinopril (3) Hyperlipemia: cont Pravastatin (4) Diabetes mellitus type II, controlled: Patient will resume diabetic diet and metformin therapy (5) Constipation, acute: Induced with opioids that pt takes form pain relief related to her recent surgery. Pt has stool softeners and started on Miralax. encouraged to ambulate and consumes high fiber food, prune juice etc. Subjective Patient is doing well she is discharged by Dr. Novoa she will follow-up with him as an outpatient. Review of Systems Review of Systems: ROS: well nourished well developed. No double vision blurry vision No problems with speech or swallowing No palpitations, chest pain or pressure No Wheezing or breathing issues No abdominal pain nausea vomiting diarrhea changes in appetite or weight No burning urine urine frequency or changes in color No focal joint pain or muscle pain No skin rashes or oral lesions No unusual bruising or bleeding Continues with minor focused back pain without radicular symptoms or complaints has a drain in place at the time of my evaluation No changes in memory or confusion Physical Exam Physical Exam: The patient appeared well nourished and normally developed. Vital signs as documented. Head exam is unremarkable. normocephalic, atraumatic Neck is without jugular venous distension, thyromegaly, or lymphademopathy Lungs are clear to auscultation and percussion. Cardiac exam reveals Rhythm is regular. First and second heart sounds normal. Abdominal exam reveals normal bowel sounds, no masses, no organomegaly Extremities are nonedematous and both pedal pulses are present Neurologic exam is A&Ox3, no focal deficits, strength is equal bilateral Psychologically seems neither anxious or depressed Results & Data Vital Signs (Past 12 Hours) Vital Signs Temp Pulse Pulse Resp BP Pulse Ox 05/04/19 07:50 36.6 C 63 18 136/82 93 05/03/19 23:15 36.5 C 67 16 109/65 95 PG Care Time/CCT Total # of Minutes Spent Total Time Spent with Patient: Total time spent is greater than 50% in coordination of care (as documented) at patient's floor/unit and/or counseling patient:
--- NOTE | 2019-05-04 10:50 | Anesthesiology Progress Note ---
Date of Service May 04, 2019 Anesthesia Post Procedure Vital Signs Vital Signs: Temp Pulse Pulse Resp BP Pulse Ox 05/04/19 07:50 36.6 C 63 18 136/82 93 05/03/19 23:15 36.5 C 67 16 109/65 95 05/03/19 15:32 36.6 C 69 17 120/73 96 Pain Intensity Lower Back: Pain Intensity: 3 Notes Mental Status: alert / awake / arousable Patient Amnestic to Procedure: Yes Nausea / Vomiting: adequately controlled Pain: adequately controlled Airway Patency, RR, SpO2: stable & adequate BP & HR: stable & adequate Hydration State: stable & adequate Anesthetic Complications: no major complications apparent
--- NOTE | 2019-05-04 11:18 | Discharge Summary ---
Date of Service May 04, 2019 Admission HPI Per Admitting Provider This is a 59-year-old female well-known to me that status post lumbar decompression and fusion. She done beautifully postoperatively but over the past week and a half is had a marked decline in status. An MRI was performed demonstrating significant seroma at the operative site. Subsequently elected to go I&D. Principal Diagnosis Epidural seroma lumbar spine Discharge Data Allergies Allergy/AdvReac Type Severity Reaction Status Date / Time No Known Allergies Allergy Verified 04/23/19 17:32 Consultations 04/30/19 10:01 Consult Anesthesiology Routine 04/30/19 21:52 Consult Hospitalist Routine Procedures Performed Operation Date: 05/01/19 07:30 Actual Procedures p Incision and Drainage Lumbar Spine, Placement of Stimulan Beads - Jorge Luis Novoa DO Hospital Course (1) Lumbar stenosis with neurogenic claudication: Patient underwent evacuation of lumbar seroma. She has marked improvement of her back and leg symptoms postoperatively. Cultures remain negative throughout her hospital stay. JOSE GUADALUPE drain decreased probably. Subsequently she was discharged on postoperative day #3. Discharge orders instructions from the chart for further review. Total Time Total Time Spent Total Time Spent (In Minutes): 20 minutes Discharge Plan Discharge Items Patient Disposition: Home - Self-Care Reason For Visit: LUMBAR SEROMA Discharge Diagnosis: Lumbar seroma Discharge Goals: Improve function Activity: Per 'Additional Instructions' section Non-emergency contact: Primary Care Provider Call non-emergency contact if: you have any medication questions Follow-up/Referrals: Antwan Corbin [Primary Care Provider] - Diet: Regular Addtl Provider Instructions: ACTIVITY RECOMMENDATIONS: SELF CARE INSTRUCTIONS AFTER THORACIC/LUMBAR FUSIONS 1. You may walk to your tolerance. It is good exercise for your legs and back. Expect some back and intermittent leg aches and pains. 2. You may perform "counter-top" level activities (make a sandwich, lloyd with a project, etc.). 3. No bending or lifting of more than 10 pounds or back twisting of any nature (roll like a log when turning in bed). 4. You may ride in a car for 20-30 minutes at a time. No driving until after your first visit with your doctor. 5. Frequent changes of position and restricting sitting to 30 minutes at a time will help limit the amount of back spasms and stiffness you may experience. 6. You may discontinue the use of ambulatory aids (cane, crutches, etc.) once your strength and confidence allow. 7. You may manager testing the shower and let water strike your incision when you arrive home at least once daily. Do not take a tub bath, sit in a hot tub or go into a swimming pool until after your first recheck in the office. SPECIAL CARE INSTRUCTIONS: VERY IMPORTANT TO READ AND REVIEW A. Your surgical incision has been closed with a cosmetic suture under the skin that will dissolve in about 6 weeks. In 14 days, you can use a pair of clean scissors and cut the suture that is left outside of the skin at the ends of your incision. 1. The small skin tapes can be removed 7 days after surgery if they have not fallen off by that point. 2. You may keep the wound open to air as much as possible to promote healing after post-op day number 5 unless told otherwise by your doctor. 3. If you think the wound looks like it is becoming infected (redness or worsening drainage) and/or you are experiencing fever, chill or worsening back pain and muscle spasms, contact the office so that we may evaluate you as soon as possible. B. Complications are uncommon, but please contact us if you have any signs or symptoms of: 1. wound infection (fever higher than 102.5 degrees F, redness, separation of wound, drainage, or increasing pain from the incision) 2. blood clots in legs (pain, swelling, redness and warmth in legs) 3. urinary tract infection (fever higher than 102.5 degrees F, burning upon urination or increased frequency of urination) 4. nerve problems (inability to walk on your toes or heels, numbness, loss of bowel or bladder control) 5. any other symptoms that concern you C. Please call the office at if you have any concerns or questions about your operation or recovery. D. No smoking! Smoking drastically decreases the chance of a solid fusion. E. Do not take any anti-inflammatory medications (Indocin, Advil, Motrin, Aspirin, Naprosyn, etc.) as these may inhibit the chance of a solid fusion. Tylenol is okay to take for pain. MANAGING PAIN AFTER SPINAL SURGERY 1. Narcotic medication is intended for short-term use and will be provided for surgical pain. Surgical pain usually lasts for a period of 4-6 weeks. Narcotic medication includes Percocet, Vicodin, Darvocet, Tylenol #3 or Lortab. 2. Longer-term pain is more appropriately treated with non-narcotic medication such as Tylenol ES. 3. Muscle spasm is not appropriately treated with narcotics. Muscle relaxers such as Soma, Flexeril or Skelaxin can be used along with Tylenol ES. 4. Remember that we all live with some "aches and pains". This is not unusual or uncommon after an injury or as we get older. a. Back pain is expected and may include muscle spasms for 4 to 6 weeks after surgery. The pain should gradually improve. If the pain worsens for no apparent reason, please contact the office. b. Intermittent leg pain may also be experienced and should not be concerned about unless it worsens for no apparent reason. If so, please contact the office. 5. We will provide appropriate medication within the normal guidelines of their prescribed use. We will also be very cautious and aware of potential abuse and extended duration of patients' medication needs. a. Pain medications are for your comfort and to assist with sleep and rest so that the tissue can heal. They are not provided in order to return to normal activity and should not be used through the day. To do so or worsening pain at night can result from ongoing tissue damage and development of tolerance to the prescribed medicine. 6. Please allow 2-3 days to process refills. Prescriptions will not be mailed but must be picked up at the office. FOLLOW UP VISIT: Keep your scheduled follow-up appointment. Any questions, please call the office at . Prescriptions: New tramadol 50 mg Tablet 50 mg PO Q4H Qty: 30 RF: 0 oxycodone 5 mg Tablet 5 mg PO Q4H Qty: 30 RF: 0 Continued pravastatin 40 mg Tablet 40 mg PO HS RF: 0 lisinopril 20 mg Tablet 20 mg PO QAM RF: 0 aspirin [Aspir-81] 81 mg Tablet,Delayed Release (Dr/Ec) 81 mg PO QAM RF: 0 amlodipine 10 mg Tablet 10 mg PO DAILY RF: 0 ferrous sulfate [iron] 325 mg (65 mg iron) Tablet 325 mg PO Q2D RF: 0 metformin 1,000 mg Tablet 1,000 mg PO BID RF: 0 gabapentin 300 mg Capsule 300 mg PO BID RF: 0 gabapentin 300 mg Capsule 600 mg PO HS RF: 0 potassium chloride 10 mEq Tablet Extended Release 10 meq PO DAILY PRN (Reason: Edema) RF: 0 furosemide 40 mg Tablet 40 mg PO DAILY PRN (Reason: Edema) RF: 0 tramadol 50 mg Tablet 50 mg PO Q4H PRN (Reason: Pain, Moderate) Qty: 30 RF: 0 oxycodone 5 mg Tablet 5 mg PO Q4H PRN (Reason: Pain, Severe) Qty: 30 RF: 0 lidocaine 5 % adhesive patch,medicated 1 patch TOP DAILY Qty: 15 RF: 0 Stand-Alone Forms: [facility] Discharge Orders: Discharge Order (Routine); Ordered 05/04/19 Ordered By: Jorge Luis Novoa Admission Data Admit Date/Time: 04/30/19 11:49 Attending Provider: Sebas Parker Admit Provider: Jorge Luis Novoa Primary Care Provider: Antwan Corbin Other Providers: Rodney Marley ; Sanjiv Fisher ; Baldemar Samuel Service: Surgical Services
== END 2019-05-04 13:23 | disposition home or self-care (01) | DRG 908 ==
LOC: SUATTDRO 11:49 → 3N 11:49